=== PATIENT | female | born 1960 | race Caucasian/White ===

== ENCOUNTER 2018-04-30 00:23 | Emergency (ER) | payer MEDICAID ==
[~2018-04-30] VITALS: Ht 182.9 cm; Wt 149.7 kg
[2018-04-30] MEDS ORDERED: IPRATROPIUM BROM 0.5 MG/2.5ML INH SOL NEB ONE (00:30)
[2018-04-30] MEDS ORDERED: ALBUTEROL SULF 2.5 MG/0.5ML(0.5%) NEB SOLN NEB ONE (00:30)
[2018-04-30 00:36] VITALS: BP 114/75
[2018-04-30] MEDS ORDERED: TRIAMCINOLONE 40MG/ML 1ML VIAL IM ONE (01:15)
== END 2018-04-30 01:26 | disposition home or self-care (01) ==
LOC: ER 00:23
DX: E03.9 Hypothyroidism, unspecified (principal); J44.9 Chronic obstructive pulmonary disease, unspecified; F17.210 Nicotine dependence, cigarettes, uncomplicated; Z76.0 Encounter for issue of repeat prescription
CPT/HCPCS: 93005; 94640; 96372; 99283; J3301; J7611; J7644

== ENCOUNTER 2018-09-26 18:12 | Emergency (ER) | payer MEDICAID ==
[~2018-09-26] VITALS: Ht 182.9 cm; Wt 154.2 kg
[2018-09-26 19:19] VITALS: BP 140/109
[2018-09-26] MEDS ORDERED: KETOROLAC TROMETH 60MG/2ML VIAL IM ONE (21:45)
== END 2018-09-26 22:12 | disposition home or self-care (01) ==
LOC: ER 18:15
DX: S93.491A Sprain of other ligament of right ankle, initial encounter (principal); J44.9 Chronic obstructive pulmonary disease, unspecified; F20.9 Schizophrenia, unspecified; Z87.891 Personal history of nicotine dependence; W18.39XA Other fall on same level, initial encounter; Y93.89 Activity, other specified; Y92.89 Other specified places as the place of occurrence of the external cause; Y99.8 Other external cause status
CPT/HCPCS: 73610; 93005; 96372; 99283; J1885